=== PATIENT | male | born 1995 | race African-American/Black ===

== ENCOUNTER 2016-06-05 12:33 | Emergency (ER) | payer MEDICAID, OTHER ==
[~2016-06-05] VITALS: Ht 180.3 cm; Wt 81.6 kg
[~2016-06-05 12:33] MED LIST: AMOXICILLIN500 MG ORAL; AZITHROMYCIN250 MG ORAL; CEPHALEXIN500 MG ORAL; IBUPROFEN600 MG ORAL; NKM; PERIDEX 0.12% O16 OZ ORO; PREDNISONE50 MG ORAL
[2016-06-05] MEDS ORDERED: CLARITIN-D 241 EACH PO (13:40)
[2016-06-05] MEDS ORDERED: FLONASE ALLERG9.9 ML NS (13:40)
--- NOTE | 2016-06-05 13:49 | Emergency Room Report ---
History of Present Illness General Chief Complaint: Upper Respiratory Illness Source: Patient Present Illness HPI The patient is a 20-year-old male presenting for one month of nasal congestion, sneezing, cough. The patient also admits to watery eyes. Patient denies medical history. The patient denies any sick contacts recent travel. Patient denies other symptoms including nausea, vomiting, fever, chills, rash, neck pain /stiffness, [place] Allergies: Coded Allergies: No Known Allergies (Unverified , 12/27/12) Patient History Past Medical History: see triage record Pertinent Family History: none Reviewed Nursing Documentation: PMH: Agreed, PSxH: Agreed Nursing Documentation-PMH Past Medical History: No Stated History Review of Systems All Other Systems: negative except mentioned in HPI Physical Exam Vital Signs Date Time Temp Pulse Resp B/P Pulse Ox O2 Delivery O2 Flow Rate FiO2 06/05/16 13:10 97.5 64 16 115/67 98 Room Air Sp02 EP Interpretation: reviewed, normal General Appearance: no apparent distress, alert, GCS 15, non-toxic Head: normocephalic, atraumatic Eyes: bilateral eye EOMI, bilateral eye PERRL, bilateral eye lid inflammation ENT: hearing grossly normal, no angioedema, normal voice, uvula midline, nasal congestion Neck: full range of motion, supple/symm/no masses Respiratory: chest non-tender, lungs clear, normal breath sounds, no wheezing, speaking full sentences Cardiovascular #1: regular rate, rhythm, no edema Musculoskeletal: back normal, gait/station normal, normal range of motion, non- tender Neurologic: alert, oriented x3, responsive, motor strength/tone normal, sensory intact, speech normal Psychiatric: judgement/insight normal, memory normal, mood/affect normal, no suicidal/homicidal ideation Skin: normal color, no rash, warm/dry, well hydrated Lymphatic: no adenopathy Medical Decision Making PA Attestation Dr. Mendez is my supervising physician. Patient management was discussed with my supervising physician Diagnostic Impression: Primary Impression: Allergic rhinitis ER Course The patient is a 20-year-old male presenting for one month of nasal congestion, sneezing, cough. Differential diagnosis include but not limited to allergic rhinitis, pharyngitis , sinusitis, AOM, bronchitis, PNA PE: No apparent distress. afebrile. No TTP over maxillary or frontal sinuses. Lungs CTA bilat. No wheezing. No accessory muscle use. Heart: RRR, no abnormal heart sounds Ears: external auditory canal clear. Non erythematous. Bilat TM intact. Cone of light present bilat. No bulging of TM. No serous fluid seen. + nasal D/C No anterior cervical lymphad No tonsillar exudate. Uvula midline.Oropharynx non erythematous The patient will be discharged home with a prescription for Claritin and Flonase. ER precautions given Last Vital Signs Date Time Temp Pulse Resp B/P Pulse Ox O2 Delivery O2 Flow Rate FiO2 06/05/16 13:10 97.5 64 16 115/67 98 Room Air Status: improved Disposition: HOME, SELF-CARE Condition: Improved Scripts Fluticasone Propionate (Flonase Allergy Relief) 9.9 Ml [place].susp 1 SPRAYS NS DAILY, #10 ML Prov: NOAH SCHAFFER 06/05/16 Loratadine/Pseudoephedrine (CLARITIN-D 24 HOUR TABLET) 1 Each Tab.er.24h 1 TAB PO DAILY, #30 TAB Prov: NOAH SCHAFFER 06/05/16 Patient Instructions: Hay Fever Additional Instructions: I discussed my findings with the patient. All questions and concerns have been answered. Treatment and medication compliance have been addressed. I advised the patient that they need to follow up with PMD in 3-5 days. Return to ED if pain remains or worsens, cough worsens or remains, you notice blood in your sputum, you notice wheezing, you experience a fever, or if needed for any reason. Patient verbalized understanding of discharge instructions. NOAH SCHAFFER Jun 05, 2016 13:49
[2016-06-05 13:50] VITALS: BP 115/67
== END 2016-06-05 13:50 | disposition home or self-care (01) ==
LOC: EMR 13:35
DX: J30.9 Allergic rhinitis, unspecified (principal)
CPT/HCPCS: 99284

== ENCOUNTER 2016-08-03 11:04 | Emergency (ER) | payer MEDICAID ==
[~2016-08-03] VITALS: Ht 177.8 cm; Wt 95.3 kg
[~2016-08-03 11:04] MED LIST changes: +CLARITIN-D 241 EACH PO; +FLONASE ALLERG9.9 ML NS
[2016-08-03] MEDS ORDERED: Morphine Sulfate 4mg/ml Inj IVP ONE ×2 (12:00→13:15)
[2016-08-03 12:50] LABS: ALANINE AMINOTRANSFERASE 27 U/L (3-41); ALBUMIN/GLOBULIN RATIO 1.4 (1.0-2.7); ANION GAP 16 (5-15); ASPARTATE AMINO TRANSFERASE 50 U/L (5-40); CALCIUM 9.6 mg/dL (8.6-10.2); CARBON DIOXIDE 26 mEQ/L (20-30); CHLORIDE 98 mEQ/L (98-107); CREATININE 1.2 mg/dL (0.7-1.2); CRP QUANT 0.5 mg/dL (< 0.5); GLOMERULAR FILTRATION RATE > 60 mL/min (>60); HEMOLYSIS 11; SODIUM 140 mEQ/L (135-145); TOTAL PROTEIN 7.5 g/dL (6.6-8.7)
[2016-08-03] MEDS ORDERED: Ketorolac 30mg Inj IV ONE (13:15)
[2016-08-03] MEDS ORDERED: Hydrogen Peroxide 473ml Bottle TOPIC ONE (13:53)
[2016-08-03] MEDS ORDERED: Bacitracin Oint 15gm Tube TOPIC ONE ×2 (13:54→14:15)
[2016-08-03] MEDS ORDERED: KEFLEX500 MG ORAL (14:46)
[2016-08-03] MEDS ORDERED: BACITRACIN15 GM TOPIC (14:46)
[2016-08-03] MEDS ORDERED: NORCO 5-325 TA1 EACH ORAL (14:46)
[2016-08-03] MEDS ORDERED: IBUPROFEN600 MG ORAL (14:46)
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
[2016-08-03 16:38] VITALS: BP 125/85
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
== END 2016-08-03 16:38 | disposition home or self-care (01) ==
LOC: EMR 11:41
DX: S60.512A Abrasion of left hand, initial encounter (principal); S60.511A Abrasion of right hand, initial encounter; S80.812A Abrasion, left lower leg, initial encounter; S80.811A Abrasion, right lower leg, initial encounter; S30.811A Abrasion of abdominal wall, initial encounter; V87.8XXA Person injured in other specified noncollision transport accidents involving motor vehicle (traffic), initial encounter; Y93.9 Activity, unspecified; Y92.9 Unspecified place or not applicable
CPT/HCPCS: 36415; 70450; 73110; 73130; 74177; 80053; 86140; 96374; 96375; 99284; J1885; J2270; Q9967